=== PATIENT | male | born 1950 | race Caucasian/White ===

== ENCOUNTER 2023-03-18 09:06 | Emergency (ER) | payer MEDICARE, SELFPAY ==
--- NOTE | ~2023-03-18 | CT_ITS ---
EXAMINATION: CT lumbar spine wo con DATE: 03/18/2023 09:44 INDICATION: Low back pain after planting plants yesterday TECHNIQUE: Computed tomography (CT) of the lumbar spine was performed without intravenous contrast. A utomated exposure control and iterative reconstruction technique were employed. Exam dose: 455.86 mG y-cm total exam DLP. COMPARISON: None FINDINGS: The lumbar vertebrae are normally aligned, with minimal degenerative spurring. Lumbar and l umbosacral interspaces are relatively well preserved. No fracture or bone destruction, spondylolysis or spondylolisthesis. No primary or secondary spinal stenosis is evident.. Diverticulosis of the sigmoid colon is incidentally noted. 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 Reviewed, dictated and finalized at [facility].
[2023-03-18 09:13] VITALS: BP 147/81; PULSE 60; RESP 16; TEMP 36.3; O2SAT 97
--- NOTE | 2023-03-18 09:22 | ED.GENADULT ---
HPI - General Adult General Chief complaint: Back Pain/Injury <Anita Alfonso December MACHINE OPERATOR [employer]ING - Last Filed: 03/18/23 11:00> Stated complaint: low back pain <Anita Roberts MACHINE OPERATOR [employer] - Last Filed: 03/18/23 11:00> Time Seen by Provider: 03/18/23 09:08 <Anita Alfonso December, MACHINE OPERATOR [employer] - Last Filed: 03/18/23 11:00> History of Present Illness HPI narrative: Erik Zaldivar is a 72 y/o male who presents with reports of doing yard work yesterday and reports straining his lower back when he twisted to the right to lift a heavy bucket of dirt. He felt the initial pain to the right lower back, he stopped what he was doing and ambulated inside to sit in his recliner. He states that he rested the rest of the day and he tried taking tylenol without much relief. He woke up this AM with continued pain. He states as long as he is standing the pain is improved, changing positions to sitting or laying increases pain. He denies any numbness tingling to his extremities/ denies loss of bowel or bladder. <Anita Alfonso December, MACHINE OPERATOR [employer] - Last Filed: 03/18/23 11:00> Related Data Allergies/adverse reactions: Allergies Allergy/AdvReac Type Severity Reaction Status Date / Time No Known Allergies Allergy Unverified 03/18/23 09:19 <Anita Alfonso December, MACHINE OPERATOR [employer] - Last Filed: 03/18/23 11:00> Review of Systems Review of Systems: CONSTITUTIONAL: Denies fever, chills, or sweats. EYES: Denies visual changes, redness, or discharge. ENT: Denies rhinorrhea, congestion, sore throat, or otalgia. CARDIOVASCULAR: Denies chest pain, palpitations, or edema. RESPIRATORY: Denies cough or dyspnea. GASTROINTESTINAL: Denies abdominal pain, nausea, vomiting, or diarrhea. GENITOURINARY: Denies dysuria or hematuria. SKIN: Denies rash or itching. MUSCULOSKELETAL: Reports right lower back pain that started yesterday NEUROLOGIC: Denies headache, numbness, dizziness, or weakness. PSYCHIATRIC: Denies anxiety or depression. <Anita Roberts MACHINE OPERATOR [employer]ING - Last Filed: 03/18/23 11:00> Exam Narrative: GENERAL: Well-appearing, well-nourished, and in no acute distress. HEAD: Normocephalic, atraumatic. EYES: PERRLA and EOMI. ENT: Nares clear, no rhinorrhea or epistaxis. Mucous membranes moist. Oropharynx without tonsillar hypertrophy exudate or other lesions. NECK: Supple. No adenopathy or masses. No carotid bruits or JVD CHEST: Clear to auscultation. No respiratory distress. No wheezes rales or rhonchi HEART: Regular rate and rhythm. No murmur heard. Normal peripheral pulses. ABDOMEN: Soft, nontender, nondistended, normal active bowel sounds. EXTREMITIES: Normal range of motion. No edema. SKIN: Warm, dry, no rash. NEURO: No focal deficits. Alert and oriented x3. PSYCH: Normal mood and affect. <Anita Roberts, MACHINE OPERATOR [employer]ING - Last Filed: 03/18/23 11:00> Course DRAPERY OPERATOR/PA Physician Supervision I agree with midlevel documentation; I performed the medical decision making component of this evaluation. <Nicki Noel MD - Last Filed: 03/18/23 17:41> Vital Signs Vital signs: Vital Signs Temperature 97.4 F L 03/18/23 09:13 Pulse Rate 60 03/18/23 09:13 Respiratory Rate 16 03/18/23 09:13 Blood Pressure 147/81 H 03/18/23 09:13 Pulse Oximetry 97 03/18/23 09:13 Oxygen Delivery Room Air 03/18/23 09:13 Temperature 97.4 F L 03/18/23 09:13 Pulse Rate 60 03/18/23 09:13 Respiratory Rate 16 03/18/23 09:13 Blood Pressure 125/78 03/18/23 11:10 Pulse Oximetry 97 03/18/23 09:13 Oxygen Delivery Room Air 03/18/23 09:13 Vitals reviewed by me. <Anita Roberts APRN - Last Filed: 03/18/23 11:00> Vital Signs Temperature 97.4 F L 03/18/23 09:13 Pulse Rate 60 03/18/23 09:13 Respiratory Rate 16 03/18/23 09:13 Blood Pressure 147/81 H 03/18/23 09:13 Pulse Oximetry 97 03/18/23 09:13 Oxygen Delivery Room Air 03/18/23 09:13 Temperature 97.4 F L 03/18/23 09:13 Pulse Rate 60 03/18/23 09:13 Respiratory Rate 16 03/18/23 09:13 Blood Pressure 125/78
[2023-03-18] MEDS: HYDROcodone/acetaminophen (*CRX) 5-325 MG TABLET 1 TAB PO (09:29)
[2023-03-18] MEDS: KETOROLAC 30 MG/ML VIAL (*BKC) 15 MG IM (09:29)
[2023-03-18] MEDS: diazePAM (*CRX) 5 MG TABLET 2.5 MG PO (10:47)
[2023-03-18] MEDS: LIDOCAINE 5% PATCH 1 PATCH TRANSDERM (10:47)
[2023-03-18 11:10] VITALS: BP 125/78
== END 2023-03-18 11:12 | disposition home or self-care (01) ==
PROVIDERS: Emergency Provider Nurse Practitioner Family
DX: S39.012A Strain of muscle, fascia and tendon of lower back, initial encounter (principal); X50.0XXA Overexertion from strenuous movement or load, initial encounter; Y93.H2 Activity, gardening and landscaping
CPT/HCPCS: 72131; 96372; 99284; A9270; J1885